=== PATIENT | female | born 1940 | race Caucasian/White ===

== ENCOUNTER → 2016-11-13 | Outpatient (CLI) | payer MEDICARE ==
[~2016-11-13] MED LIST: AMLODIPINE BESYL5 MG PO; BENAZEPRIL HCL40 MG PO; COREG25 M1 PO; COSOPT EYE DROPS5 ML LEFT EYE; CRESTOR5 MG PO; K-DUR10 MEQ PO; LO-DOSE ASPIRIN81 M1 PO; PLAVIX75 MG PO; PROTONIX40 MG PO; ZOLOFT25 MG PO
== END | disposition home or self-care (01) ==
LOC: CDC 14:58
DX: R94.31 Abnormal electrocardiogram [ECG] [EKG] (principal)
CPT/HCPCS: 93000

== ENCOUNTER → 2016-12-14 | Outpatient (CLI) | payer MEDICARE | END | disposition home or self-care (01) | LOC: CDC 11:02 | DX: Z01.810 Encounter for preprocedural cardiovascular examination (principal) | CPT/HCPCS: 93000 ==

== ENCOUNTER → 2017-06-07 | Outpatient (CLI) | payer MEDICARE ==
[~2017-06-07] MED LIST changes: +CILOSTAZOL50 MG PO; +COSOPT EYE DROP10 ML BOTH EYES; -CRESTOR5 MG PO; +FLONASE ALLERG9.9 ML BOTH NARES; +IMODIUM A-D2 M2 PO; +LIPITOR20 MG PO; +MELATIN3 MG PO; +NICODERM CQ1 EAC2 TD
== END | disposition home or self-care (01) ==
LOC: CDC 14:33
DX: Z01.810 Encounter for preprocedural cardiovascular examination (principal); C18.2 Malignant neoplasm of ascending colon
CPT/HCPCS: 93000

== ENCOUNTER 2017-06-12 22:32 | Inpatient (IN) | payer OTHER, MEDICARE ==
[~2017-06-12] VITALS: Ht 170.2 cm; Wt 79.0 kg
[2017-06-13 06:00] VITALS: BP 147/67
[2017-06-13 14:27] VITALS: BP 166/73
[2017-06-13 14:35] VITALS: BP 166/73
[2017-06-13 15:45] VITALS: BP 161/76
[2017-06-13 19:22] VITALS: BP 155/68
[2017-06-13 23:13] VITALS: BP 167/72
[2017-06-14 03:37] VITALS: BP 135/69
[2017-06-14 05:58] LABS: HEMATOCRIT 33.8 % (36.0-46.0); HEMOGLOBIN 11.6 G/DL (11.9-15.5); MCH 30.5 PG (29.0-34.0); MCHC 34.3 G/DL (30.0-36.0); MCV 88.9 FL (83-99); PLATELET COUNT 200 K/uL (156-360); RBC DIS.WIDTH-CV 12.5 % (11.8-14.6); RBC DIS.WIDTH-SD 40.5 % (39-53); WHITE BLOOD COUNT 11.1 K/uL (4.1-10.2)
[2017-06-14 06:28] LABS: CHLORIDE 100 MEQ/L (99-109); CREATININE 0.7 MG/DL (0.6-1.3); GFR ESTIMATE (CALCULATED) > 59 mL/min/; GLUCOSE 154 mg/dL (70-99); MAGNESIUM 1.7 mg/dl (1.3-2.7); SODIUM 134 MEQ/L (136-147); UREA NITROGEN (BUN) 8 mg/dL (9-23)
[2017-06-14 06:31] LABS: POTASSIUM 3.1 MEQ/L (3.7-5.4)
[2017-06-14 07:27] VITALS: BP 148/67
[2017-06-14 17:46] VITALS: BP 143/65
[2017-06-14 19:19] VITALS: BP 133/99
[2017-06-14 22:58] VITALS: BP 129/61
[2017-06-15 07:52] VITALS: BP 141/65
[2017-06-15 10:57] LABS: HEMATOCRIT 33.3 % (36.0-46.0); HEMOGLOBIN 11.1 G/DL (11.9-15.5); MCH 30.9 PG (29.0-34.0); MCHC 33.3 G/DL (30.0-36.0); MCV 92.8 FL (83-99); PLATELET COUNT 179 K/uL (156-360); RBC DIS.WIDTH-CV 12.8 % (11.8-14.6); RBC DIS.WIDTH-SD 43.6 % (39-53); RED BLOOD COUNT 3.59 M/uL (3.80-5.20); WHITE BLOOD COUNT 8.9 K/uL (4.1-10.2)
[2017-06-15 11:22] LABS: CHLORIDE 106 MEQ/L (99-109); CREATININE 0.6 MG/DL (0.6-1.3); GFR ESTIMATE (CALCULATED) > 59 mL/min/; GLUCOSE 136 mg/dL (70-99); SODIUM 139 MEQ/L (136-147); UREA NITROGEN (BUN) 6 mg/dL (9-23)
[2017-06-15 11:24] LABS: POTASSIUM 4.3 MEQ/L (3.7-5.4)
[2017-06-15 16:27] VITALS: BP 121/71
[2017-06-15] MEDS ORDERED: TRAMADOL HCL50 MG PO (17:02)
[2017-06-15 23:16] VITALS: BP 142/65
[2017-06-16 07:30] VITALS: BP 168/75
[2017-06-16 10:00] LABS: C DIFF TOXIN NEGATIVE (NEGATIVE)
== END 2017-06-16 16:34 | disposition home or self-care (01) | DRG 330 ==
LOC: ENRESERV 22:32 → 2SOUTH 06-13 05:39 → ENRESERV 06-13 12:53 → 3EAST 06-13 14:15
PROVIDERS: Physician Assistant; Surgery
DX: D12.2 Benign neoplasm of ascending colon (principal); K80.10 Calculus of gallbladder with chronic cholecystitis without obstruction; R19.7 Diarrhea, unspecified; J44.9 Chronic obstructive pulmonary disease, unspecified; I10 Essential (primary) hypertension; E78.00 Pure hypercholesterolemia, unspecified; I25.10 Atherosclerotic heart disease of native coronary artery without angina pectoris; M19.90 Unspecified osteoarthritis, unspecified site; I70.209 Unspecified atherosclerosis of native arteries of extremities, unspecified extremity; I49.9 Cardiac arrhythmia, unspecified; K21.9 Gastro-esophageal reflux disease without esophagitis; F17.200 Nicotine dependence, unspecified, uncomplicated; Z86.73 Personal history of transient ischemic attack (TIA), and cerebral infarction without residual deficits; Z96.642 Presence of left artificial hip joint; Z95.820 Peripheral vascular angioplasty status with implants and grafts; Z80.52 Family history of malignant neoplasm of bladder; Z82.49 Family history of ischemic heart disease and other diseases of the circulatory system; Z83.3 Family history of diabetes mellitus; Z79.02 Long term (current) use of antithrombotics/antiplatelets
CPT/HCPCS: 80048; 82948; 83735; 84100; 85027; 86850; 86900; 86901; 87493; 88304; 88309; J0330; J1100; J1170; J1335; J1885; J2001; J2405; J2710; J2765; J3010; J3475; J3480; J7050; J7120; S0020

== ENCOUNTER 2017-11-28 10:09 | Inpatient (IN) | payer OTHER, MEDICARE ==
[~2017-11-28] VITALS: Ht 170.2 cm; Wt 62.5 kg
[~2017-11-28 10:09] MED LIST changes: +TRAMADOL HCL50 MG PO
[2017-11-28 11:25] LABS: HEMATOCRIT 29.3 % (36.0-46.0); HEMOGLOBIN 9.8 G/DL (11.9-15.5); MCHC 33.4 G/DL (30.0-36.0); MCV 89.6 FL (83-99); PLATELET COUNT 198 K/uL (156-360); RBC DIS.WIDTH-CV 14.2 % (11.8-14.6); RBC DIS.WIDTH-SD 46.3 % (39-53); RED BLOOD COUNT 3.27 M/uL (3.80-5.20); WHITE BLOOD COUNT 9.9 K/uL (4.1-10.2)
[2017-11-28 12:18] LABS: CHLORIDE 109 MEQ/L (99-109); GFR ESTIMATE (CALCULATED) 26 mL/min/; GLUCOSE 147 mg/dL (70-99); POTASSIUM 3.5 MEQ/L (3.7-5.4); SODIUM 139 MEQ/L (136-147); UREA NITROGEN (BUN) 22 mg/dL (9-23)
[2017-11-28 16:02] VITALS: BP 97/51
[2017-11-28 19:24] VITALS: BP 156/68; BP 98/54
[2017-11-28 23:04] VITALS: BP 100/50
[2017-11-29 03:18] VITALS: BP 118/68
[2017-11-29 07:24] VITALS: BP 115/56
[2017-11-29 08:30] LABS: CHLORIDE 112 MEQ/L (99-109); CREATININE 1.8 MG/DL (0.6-1.3); GFR ESTIMATE (CALCULATED) 29 mL/min/; GLUCOSE 111 mg/dL (70-99); SODIUM 143 MEQ/L (136-147); UREA NITROGEN (BUN) 24 mg/dL (9-23)
[2017-11-29 08:34] LABS: POTASSIUM 2.7 MEQ/L (3.7-5.4)
[2017-11-29 11:45] VITALS: BP 111/55
[2017-11-29 15:52] VITALS: BP 113/58
[2017-11-29 19:04] VITALS: BP 118/55; BP 118/56
[2017-11-30] VITALS (7 sets, daily range): BP systolic 114–173; BP diastolic 53–74
[2017-11-30 06:54] LABS: CHLORIDE 113 MEQ/L (99-109); GFR ESTIMATE (CALCULATED) 51 mL/min/; GLUCOSE 97 mg/dL (70-99); POTASSIUM 2.9 MEQ/L (3.7-5.4); SODIUM 141 MEQ/L (136-147); UREA NITROGEN (BUN) 18 mg/dL (9-23)
[2017-11-30 06:55] LABS: CREATININE 1.1 MG/DL (0.6-1.3)
[2017-12-01] VITALS (7 sets, daily range): BP systolic 121–201; BP diastolic 64–92
[2017-12-01 06:03] LABS: CHLORIDE 111 MEQ/L (99-109); CREATININE 0.7 MG/DL (0.6-1.3); GFR ESTIMATE (CALCULATED) > 59 mL/min/; GLUCOSE 100 mg/dL (70-99); POTASSIUM 2.9 MEQ/L (3.7-5.4); SODIUM 144 MEQ/L (136-147); UREA NITROGEN (BUN) 10 mg/dL (9-23)
[2017-12-02 03:55] VITALS: BP 179/79
[2017-12-02 06:08] LABS: CHLORIDE 108 MEQ/L (99-109); CREATININE 0.6 MG/DL (0.6-1.3); GFR ESTIMATE (CALCULATED) > 59 mL/min/; GLUCOSE 104 mg/dL (70-99); SODIUM 144 MEQ/L (136-147); UREA NITROGEN (BUN) 5 mg/dL (9-23)
[2017-12-02 06:21] LABS: POTASSIUM 2.4 MEQ/L (3.7-5.4)
[2017-12-02 07:37] VITALS: BP 180/81
[2017-12-02 09:14] VITALS: BP 127/58
[2017-12-02 12:12] LABS: CHLORIDE 108 MEQ/L (99-109); CREATININE 0.7 MG/DL (0.6-1.3); GFR ESTIMATE (CALCULATED) > 59 mL/min/; GLUCOSE 151 mg/dL (70-99); SODIUM 144 MEQ/L (136-147); UREA NITROGEN (BUN) 5 mg/dL (9-23)
[2017-12-02 12:15] LABS: POTASSIUM 3.1 MEQ/L (3.7-5.4)
[2017-12-02 12:31] LABS: BASOPHIL (%) 0.5 % (0-1); EOSINOPHIL (%) 2.2 % (0-5); EOSINOPHIL COUNT 0.1 K/uL (0-0.3); HEMATOCRIT 25.8 % (36.0-46.0); HEMOGLOBIN 8.9 G/DL (11.9-15.5); IMMATURE GRANULOCYTE (%) 0.5 % (0.0-0.7); MCH 29.4 PG (29.0-34.0); MCHC 34.5 G/DL (30.0-36.0); MONOCYTE (%) 10.5 % (3-12); MONOCYTE COUNT 0.6 K/uL (0-0.8); NEUTROPHIL (%) 69.3 % (45-76); PLATELET COUNT 219 K/uL (156-360); RBC DIS.WIDTH-SD 43.3 % (39-53); RED BLOOD COUNT 3.03 M/uL (3.80-5.20); WHITE BLOOD COUNT 5.8 K/uL (4.1-10.2)
[2017-12-02 15:09] LABS: MCV 85.1 FL (83-99)
[2017-12-02 17:18] VITALS: BP 143/66; BP 164/73
[2017-12-02 20:27] VITALS: BP 170/79
[2017-12-03 00:31] VITALS: BP 153/66
[2017-12-03 04:00] VITALS: BP 170/77
[2017-12-03 06:46] LABS: BASOPHIL (%) 0.4 % (0-1); EOSINOPHIL (%) 5.2 % (0-5); EOSINOPHIL COUNT 0.2 K/uL (0-0.3); HEMATOCRIT 25.2 % (36.0-46.0); HEMOGLOBIN 8.5 G/DL (11.9-15.5); IMMATURE GRANULOCYTE (%) 0.7 % (0.0-0.7); LYMPHOCYTE (%) 26.5 % (15-42); LYMPHOCYTE COUNT 1.2 K/uL (1.0-2.8); MCH 29.1 PG (29.0-34.0); MCHC 33.7 G/DL (30.0-36.0); MCV 86.3 FL (83-99); MONOCYTE (%) 11.9 % (3-12); MONOCYTE COUNT 0.6 K/uL (0-0.8); NEUTROPHIL (%) 55.3 % (45-76); NEUTROPHIL COUNT 2.6 K/uL (1.8-6.4); PLATELET COUNT 228 K/uL (156-360); RBC DIS.WIDTH-CV 14.1 % (11.8-14.6); RBC DIS.WIDTH-SD 44.8 % (39-53); RED BLOOD COUNT 2.92 M/uL (3.80-5.20); WHITE BLOOD COUNT 4.6 K/uL (4.1-10.2)
[2017-12-03 07:06] LABS: CHLORIDE 108 MEQ/L (99-109); CREATININE 0.6 MG/DL (0.6-1.3); GFR ESTIMATE (CALCULATED) > 59 mL/min/; GLUCOSE 123 mg/dL (70-99); SODIUM 144 MEQ/L (136-147); UREA NITROGEN (BUN) 5 mg/dL (9-23)
[2017-12-03 08:09] VITALS: BP 147/74
[2017-12-03 08:56] LABS: MAGNESIUM 1.4 mg/dl (1.3-2.7)
[2017-12-03 11:47] VITALS: BP 159/71
[2017-12-03] MEDS ORDERED: K-DUR20 MEQ PO (11:55)
[2017-12-03] MEDS ORDERED: MAG-OXIDE400 MG PO (11:55)
[2017-12-03] MEDS ORDERED: FLORASTOR250 MG PO (11:56)
[2017-12-03] MEDS ORDERED: AUGMENTIN875 MG PO (13:54)
[2017-12-03 15:47] VITALS: BP 149/65
== END 2017-12-03 15:54 | disposition home or self-care (01) | DRG 856 ==
LOC: EME 10:09 → 5SOUTH 14:03 → EDOF 14:03 → ENRESERV 14:07 → 5SOUTH 15:03
PROVIDERS: Hospitalist; Physician Assistant
PROC: 0W950ZZ Drainage of Lower Jaw, Open Approach (ICD-10-PCS; principal; 2017-12-01)
DX: T81.4XXA Infection following a procedure, initial encounter (principal); Y83.1 Surgical operation with implant of artificial internal device as the cause of abnormal reaction of the patient, or of later complication, without mention of misadventure at the time of the procedure; A41.9 Sepsis, unspecified organism; L02.01 Cutaneous abscess of face; K04.7 Periapical abscess without sinus; N17.9 Acute kidney failure, unspecified; T39.395A Adverse effect of other nonsteroidal anti-inflammatory drugs [NSAID], initial encounter; E86.0 Dehydration; I48.91 Unspecified atrial fibrillation; E87.2 Acidosis; E87.6 Hypokalemia; E83.42 Hypomagnesemia; K02.9 Dental caries, unspecified; J44.9 Chronic obstructive pulmonary disease, unspecified; I10 Essential (primary) hypertension; I73.9 Peripheral vascular disease, unspecified; K21.9 Gastro-esophageal reflux disease without esophagitis; E78.5 Hyperlipidemia, unspecified; F17.210 Nicotine dependence, cigarettes, uncomplicated; Z66 Do not resuscitate; Z96.642 Presence of left artificial hip joint; Z79.02 Long term (current) use of antithrombotics/antiplatelets; Z79.82 Long term (current) use of aspirin; Z88.0 Allergy status to penicillin; Z88.5 Allergy status to narcotic agent; Z86.73 Personal history of transient ischemic attack (TIA), and cerebral infarction without residual deficits; Z90.49 Acquired absence of other specified parts of digestive tract
CPT/HCPCS: 70450; 70490; 71046; 80048; 80048 91; 81003; 82948; 83605; 83735; 85025; 85027; 87040; 87070; 87075; 87076; 87205; 93005; 93306; 99281; 99285; J0295; J0360; J0696; J1170; J1650; J2405; J3010; J3475; J3480; J7030; J7050; S0020